=== PATIENT | female | born 1950 | race Caucasian/White ===

== ENCOUNTER 2019-11-17 12:05 | Emergency (ER) | payer MEDICARE, SELFPAY ==
[2019-11-17 12:15] VITALS: BP 118/66; PULSE 81; RESP 18; TEMP 37.1; O2SAT 98
--- NOTE | 2019-11-17 12:17 | ED.GENADULT ---
HPI - General Adult General Chief complaint: Ear Stated complaint: ear pain/pressure Time Seen by Provider: 11/17/19 12:19 Source: patient and RN notes reviewed Mode of arrival: ambulatory Limitations: no limitations History of Present Illness HPI narrative: This is a 68 years old female presents to the office an evaluation of right ear pain/fullness since last night. She also reports hearing different; pain describes as dull. NO treatment prior to arrival. Related Data Home Medications Medication Instructions Recorded Confirmed No Home Medications 11/17/19 11/17/19 Allergies Allergy/AdvReac Type Severity Reaction Status Date / Time aspirin Allergy Unknown ESOPHAGEAL Verified 11/17/19 12:30 SPASM levofloxacin Allergy Unknown TENDONITIS Verified 11/17/19 12:30 NSAIDS (Non-Steroidal Allergy Unknown ESOPHAGEAL Verified 11/17/19 12:30 Anti-Inflamma SPASM Sulfa (Sulfonamide Allergy Unknown Rash Verified 11/17/19 12:30 Antibiotics) Review of Systems Review of Systems: Narrative: CONSTITUTIONAL: Denies fever ENT: Denies rhinorrhea, congestion, sore throat. Reports right otalgia. CARDIOVASCULAR: Denies chest pain RESPIRATORY: Denies dyspnea, cough GASTROINTESTINAL: Denies abdominal pain, nausea, vomiting SKIN: Denies rash MUSCULOSKELETAL: Denies acute back pain NEUROLOGIC: Denies lightheaded/dizziness PMFSH Past Medical History Medical History (Updated 11/17/19 @ 12:48 by JR Ontiveros) Hx of supraventricular tachycardia HX: breast cancer Surgical History Surgical History (Updated 11/17/19 @ 12:19 by JR Ontiveros) Hx of mastectomy left breast lumpectomy 2014 Hx of parathyroidectomy 2015 Hx of tonsillectomy Social History Social History (Updated 11/17/19 @ 12:19 by JR Ontiveros) Smoking status: Never smoker Alcohol intake: never Comments At time of signature, I agree with nursing past medical, surgical, social and family history. There is no relevant family history pertinent to the presenting complaint. Exam Narrative: Exam Narrative: GENERAL: This is a well-nourished, well-developed patient, in no apparent distress. EYES: Sclera clear/white. Vision is grossly intact. EARS: External ears normal, auditory canals clear and without drainage, TMs normal with good light reflex; without perforation. Hearing grossly intact. NOSE: External nose normal with no obvious nasal discharge, nares without redness, no rhinorrhea. THROAT: Mucous membranes moist, posterior pharynx clear. NECK: Neck supple, non-tender without lymphadenopathy, masses or thyromegaly. CARDIOVASCULAR: Regular rate and rhythm without murmurs, gallops, or rubs. RESPIRATORY: Clear to auscultation. Breath sounds equal bilaterally. No wheezes, rales, or rhonchi. GASTROINTESTINAL: Abdomen soft, non-tender, nondistended. Bowel sounds are active. No guarding. NEURO: awake, alert, and oriented to person, place and time. There were no obvious focal neurologic abnormalities. Steady gait [place] Coma Scale Eye Opening: Spontaneous 4 Brent Coma Scale Motor: Obeys Commands 6 [place] Coma Scale Verbal: Oriented 5 Course Vital Signs Vital signs: Vital Signs Temperature 98.7 F 11/17/19 12:15 Pulse Rate 81 11/17/19 12:15 Respiratory Rate 18 11/17/19 12:15 Blood Pressure 118/66 11/17/19 12:15 Pulse Oximetry 98 11/17/19 12:15 Temperature 98.7 F 11/17/19 12:15 Pulse Rate 81 11/17/19 12:15 Respiratory Rate 18 11/17/19 12:15 Blood Pressure 118/66 11/17/19 12:15 Pulse Oximetry 98 11/17/19 12:15 Medical Decision Making MDM Narrative Medical decision making narrative: Patient was very adamant that her ear must be infected because her pain was real , she asked me to look in her ear 3 times and I told her that I do not see any sign of infection. 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
== END 2019-11-17 12:51 | disposition home or self-care (01) ==
PROVIDERS: Emergency Provider Nurse Practitioner
DX: H65.01 Acute serous otitis media, right ear (principal); Z85.3 Personal history of malignant neoplasm of breast
CPT/HCPCS: 99211; G0463

== ENCOUNTER 2023-11-30 10:57 | Emergency (ER) | payer MEDICARE, SELFPAY ==
--- NOTE | ~2023-11-30 | XR_ITS ---
EXAMINATION: XR chest 2V DATE: 11/30/2023 11:50 INDICATION: Cough. TECHNIQUE: Frontal and lateral views of the chest were obtained. COMPARISON: Chest 2 views 05/17/2013 FINDINGS: A calcified right lung nodule and calcified right hilar lymph nodes are consistent with old granulomatous disease. No pleural effusion or pneumothorax. The heart size is normal. IMPRESSION: 1. No acute cardiopulmonary disease. Reviewed, dictated and finalized at location A.
[2023-11-30 11:10] VITALS: BP 121/86; PULSE 93; RESP 16; TEMP 37; O2SAT 98
--- NOTE | 2023-11-30 11:31 | ED.URI ---
HPI - URI/Sore Throat General Chief Complaint: Upper Respiratory Infection Stated Complaint: FEVER/COUGH/CONGESTION/SINUS Time Seen by Provider: 11/30/23 11:31 Source: patient Mode of arrival: ambulatory Limitations: no limitations History of Present Illness HPI Narrative: 72 y/o female presented for c/o cough and chest congestion x1 week. Cough is productive but does not know the color, and endorses rattling in chest. Reports fever up to 100, fatigue, and nasal congestion started 2 days ago. Has been taking dayquil, nyquil and mucinex. Denies cp, palpitations, sob, n/v/d. Related Data Home Medications Medication Instructions Recorded Confirmed celecoxib 200 mg capsule 400 mg PO DAILY 11/30/23 11/30/23 diazepam 2 mg tablet 2 mg PO DIRECTED 11/30/23 11/30/23 rosuvastatin 10 mg tablet 10 mg PO DIRECTED 11/30/23 11/30/23 Allergies Allergy/AdvReac Type Severity Reaction Status Date / Time aspirin Allergy Unknown ESOPHAGEAL Verified 11/30/23 11:22 SPASM levofloxacin Allergy Unknown TENDONITIS Verified 11/30/23 11:22 NSAIDS (Non-Steroidal Allergy Unknown ESOPHAGEAL Verified 11/30/23 11:22 Anti-Inflamma SPASM Sulfa (Sulfonamide Allergy Unknown Rash Verified 11/30/23 11:22 Antibiotics) Review of Systems Review of Systems: CONSTITUTIONAL: Denies body aches, reports fever EYES: Denies visual changes, redness, or discharge. ENT: reports rhinorrhea, congestion, Denies sore throat, or otalgia. CARDIOVASCULAR: Denies chest pain, palpitations, or edema. RESPIRATORY: Reports cough, denies sob, wheezing. GASTROINTESTINAL: Denies abdominal pain, nausea, vomiting, or diarrhea. MUSCULOSKELETAL: Denies back pain, joint pain, or myalgia. NEUROLOGIC: Denies headache All systems reviewed & are unremarkable except as noted in HPI and below PMFSH Past Medical History Medical History Hx of supraventricular tachycardia HX: breast cancer Surgical History Surgical History Hx of mastectomy left breast lumpectomy 2014 Hx of parathyroidectomy 2014 Hx of tonsillectomy Social History Social History (Reviewed 11/30/23 @ 12:14 by PAUL Valente Smoking status: Never smoker Alcohol intake: never Comments At time of signature, I have reviewed and agree with nursing past medical, surgical, social and family history unless otherwise noted. Please see nursing chart for further information. There is no relevant family history pertinent to the presenting complaint Exam Narrative: GENERAL: Well-appearing, in no acute distress. EYES: EOMI. No redness or drainage. Conjunctivae normal. ENT: Mucous membranes pink and moist. No rhinorrhea. TMs normal bilaterally. Throat normal. Uvula midline. NECK: Normal AROM. Supple. CHEST: No respiratory distress. Exp wheezing to bases, occasional cripple cutter cough. HEART: Regular rate and rhythm. No murmur appreciated. ABDOMEN: Soft, nontender, nondistended, normal active bowel sounds. EXTREMITIES: Normal range of motion. No edema. SKIN: Warm, dry, no rash. Capillary refill normal. Normal skin turgor. NEURO: Alert and oriented x3. Gait steady. PSYCH: Normal affect. Course Course Emergency Course: Patient is aware of diagnosis, understands and agrees to treatment plan. Anticipatory guidance given. Patient agrees to follow-up as directed and is aware of reasons to seek care at the emergency department. Portions of this record may have been created with voice recognition software Level of Care: Express Care Visit Vital Signs Vital signs: Vital Signs Temperature 98.6 F 11/30/23 11:10 Pulse Rate 93 11/30/23 11:10 Respiratory Rate 16 11/30/23 11:10 Blood Pressure 121/86 11/30/23 11:10 Pulse Oximetry 98 11/30/23 11:10 Temperature 98.6 F 11/30/23 11:10 Pulse Rate 93 11/30/23 11:10 Respiratory Rate 16 11/30/23 11:
== END 2023-11-30 12:10 | disposition home or self-care (01) ==
PROVIDERS: Emergency Provider Nurse Practitioner Family; PCP Family Medicine
DX: J40 Bronchitis, not specified as acute or chronic (principal); Z85.3 Personal history of malignant neoplasm of breast; Z90.12 Acquired absence of left breast and nipple
CPT/HCPCS: 71046; 99203; G0463

== ENCOUNTER 2025-04-25 09:17 | Outpatient (CLI) | payer MEDICARE, SELFPAY ==
--- NOTE | ~2025-04-25 | XR_ITS ---
EXAMINATION: XR hip LT min 2V, 04/25/2025 9:37 CDT HISTORY: Pain in left hip x 1 year, no injury, no surgery COMPARISON: No comparisons available. Findings: No acute fracture or malalignment. No significant degenerative changes. Soft tissues unremarkable. Impression: No acute fracture or malalignment. Reviewed, dictated and finalized at location P. Impression: No acute fracture or malalignment.
== END 2025-04-25 09:18 | disposition home or self-care (01) ==
LOC: GOSHIMG 09:22
PROVIDERS: PCP Family Medicine; Visit Provider Family Medicine
DX: M25.552 Pain in left hip (principal)
CPT/HCPCS: 73502